=== PATIENT | male | born 1945 | race Caucasian/White ===

== ENCOUNTER → 2019-05-14 | Outpatient (CLI) | payer MEDICARE, OTHER ==
[~2019-05-14] MED LIST: ASPI81CH PO; Allopurinol100 MG PO; CETI5 PO; Metformin HCl1000 MG PO; Pravachol40 MG PO; Saw Palmetto450 MG PO
== END | disposition home or self-care (01) ==
LOC: PLD 10:43 → LAB SHORT 10:43
DX: L98.8 Other specified disorders of the skin and subcutaneous tissue (principal); R23.4 Changes in skin texture; L08.0 Pyoderma
CPT/HCPCS: 87070; 87205; 88305; 88312

== ENCOUNTER → 2021-10-01 | Outpatient (CLI) | payer MEDICARE, OTHER | LOC: LAB 09:45 → LAB SHORT 09:45 | DX: L08.9 Local infection of the skin and subcutaneous tissue, unspecified (principal); R21 Rash and other nonspecific skin eruption; Z71.89 Other specified counseling | CPT/HCPCS: 87070; 87205 ==